=== PATIENT | male | born 1955 | race Caucasian/White ===

== ENCOUNTER → 2019-09-04 13:25 | Outpatient (CLI) | payer MEDICARE, SELFPAY ==
--- NOTE | 2019-09-04 13:31 | CT_ITS ---
STUDY: LOW DOSE CT LUNG CANCER SCREENING REASON FOR EXAM: Male, 64 years old. SMOKER/SOB. 50+ YR SMOKER 1/2 PPD screening study RADIATION DOSAGE (If Supplied By Facility): CTDIvol = ( 4.02 ) mGy, DLP = ( 150.99 ) mGycm TECHNIQUE: No contrast was administered. Low dose technique was utilized (average mAS-38 and kVp 120). 1.25 mm axial source images with a slice interval of 1.25-mm were reconstructed in lung windows. 2.5 mm axial source images with a slice interval of 2.5-mm were reconstructed in lung windows. 5.0 mm axial source images with a slice interval of 5.0-mm were reconstructed in soft tissue windows. Nodule measured using lung windows on PACS and/or independent workstation with automated measurement of minimum and maximum diameter. Nodule measurement reported as average diameter rounded to the nearest whole number. Growth is defined as an increase ins size of greater than 1.5 mm. COMPARISON: None. FINDINGS: Lung windows show the lungs to be normally expanded. No suspicious noncalcified mass or nodule is noted. No suspicious organized infiltrate or suspicious groundglass opacifications. No pleural or pericardial effusions. There is a calcified granuloma in the right upper lobe on axial image 144. Bony structures show degenerative change. Limited cuts through the upper abdomen do not show a suspicious abnormality CT/Low Dose CT Lung Screening IMPRESSION: Lung-RADS category 1 - Continue annual screening with LDCT in 12 months. IMPORTANT NOTES FOR USE: ACR Lung-RADS Version 1.0 Assessment Categories Release Date: July 10, 2013 Category: Coded 0-4 bases on nodule(s) with highest degree of suspicion. Negative screen is defined as categories 1 and 2; a positive screen is defined as categories 3 and 4. Category 3 and 4A nodules that are unchanged on interval CT should be coded as category 2, and individuals returned to screening in 12 months. Category 4X: Category 3 or 4 nodules with additional imaging findings that increase the suspicion of lung cancer, such as spiculation, GGN that doubles in size in 1 year, enlarged lymph notes, etc. Category Modifiers: S (significant finding unrelated to lung cancer) and C (prior history of treated lung cancer) may be added to the 0-4 Lung-RADS Electronically Signed: Kishan Culver MD at 14:03 EDT , Service support ,
== END ==
PROVIDERS: PCP Nurse Practitioner; Referring Provider Nurse Practitioner; Visit Provider Nurse Practitioner
DX: F17.210 Nicotine dependence, cigarettes, uncomplicated (principal); Z12.2 Encounter for screening for malignant neoplasm of respiratory organs
CPT/HCPCS: G0297

== ENCOUNTER 2019-09-10 08:18 | Observation (INO) | payer MEDICARE, SELFPAY ==
[2019-09-10] VITALS (17 sets, daily range): BP systolic 141–227; BP diastolic 71–101; PULSE 45–79; RESP 17–20; TEMP 36.2–37; O2SAT 96–100; BMI 29.6; BMI 27.8; BMI 27.9
--- NOTE | 2019-09-10 08:44 | EKG12_ITS ---
Test Reason : CP Blood Pressure : / mmHG Vent. Rate : 057 BPM Atrial Rate : 057 BPM P-R Int : 188 ms QRS Dur : 102 ms QT Int : 430 ms P-R-T Axes : 060 005 043 degrees QTc Int : 418 ms Sinus bradycardia Otherwise normal ECG Confirmed by FANI PEDRAZA ([id number]), desk editor CARISA BRUNO ([id number]) on 09/14/2019 11:59:18 AM Referred By: TOMAS Confirmed By:FANI PEDRAZA
[2019-09-10] MEDS: Aspirin 81 MG TAB.CHEW 324 MG PO (09:04)
[2019-09-10 09:10] LABS: Absolute Lymphocyte Count 2.28 X10^3/uL (0.83-4.51); Absolute Neutrophil Count 3.7 X10^3/uL (2.0-7.7); Basophil# 0.03 X10^3/uL; Basophil% 0.4 % (0-1); Eosinophil# 0.12 X10^3/uL; Eosinophils% 1.8 % (0-5); Hematocrit 46.3 % (40-54); Hemoglobin 14.6 g/dL (13.0-16.5); Lymphocyte # 2.28 X10^3/ul (4.0); Lymphocyte % 34.1 % (19-41); Mean Corp Hgb Conc 31.5 g/dL (32-36); Mean Corpuscular Hgb 30.8 pg (27.0-32.0); Mean Corpuscular Volume 97.7 fL (80-94); Mean Platelet Vol. 10.5 fl (6.2-12.0); Monocyte# 0.57 X10^3/uL; Monocyte% 8.5 % (0-10); NRBC Flagged by Analyzer 0 % (0-5); Neutrophil # 3.66 X10^3/uL (2.7-7.7); Neutrophil % 54.9 % (47-70); Platelet Count 277 K/mm3 (150-450); RBC Distribution Width CV 12.2 % (11.6-14.6); RBC Distribution Width SD 43.9 fl (35.1-43.9); Red Blood Count 4.74 M/mm3 (4.6-6.2); White Blood Count 6.7 K/mm3 (4.4-11.0)
--- NOTE | 2019-09-10 09:15 | RAD_ITS ---
STUDY: X-RAY CHEST REASON FOR EXAM: Male, 64 years old. CHEST TIGHTNESS TECHNIQUE: Frontal view COMPARISON: None. FINDINGS: The lungs are clear and expanded. There is no demonstrated pleural abnormality. Normal size heart. Normal mediastinum and imtiaz. Normal visualized pulmonary arteries. Normal visualized aortic arch and descending thoracic aorta. Normal visualized thoracic spine. Normal visualized ribs, clavicles, and shoulders. There is no demonstrated abnormality of the visualized soft tissue structures of the upper abdomen. RAD/Chest 1 View (Portable) IMPRESSION: Normal x-ray examination of the chest. Electronically Signed: Siddhartha Sylvester DO at 9:36 EDT Tel [phone], Service support ,
[2019-09-10 09:28] LABS: Anion Gap 7 (5-15); BUN 13 mg/dL (7-18); BUN/Creat Ratio 11.5 RATIO (10-20); Calcium,Total 8.9 mg/dL (8.5-10.1); Chloride 105 mmol/L (98-107); Creatinine, Serum 1.13 mg/dL (0.70-1.30); EST Glomerular Filtration Rate 69 mL/min (>60); Est Glom Filt Rate - Afr Amer 84 mL/min (>60); Estimated Creatinine Clearance 72.67 ml/min; Glucose 119 mg/dL (74-106); Potassium 3.6 mmol/L (3.5-5.1); Sodium Level 139 mmol/L (136-145)
[2019-09-10] MEDS: Atenolol 25 MG Tablet PO ×2 (09:38→13:35)
--- NOTE | 2019-09-10 09:47 | ED.DCSUM_ITS ---
- ER Visit Summary Date of Service: 09/10/19 Chief Complaint: Chest pain History of Present Illness: The patient is a 64 M who presents with chest pain that began approximate 1-1/2 hours prior to arrival. Patient states he woke up this morning and was doing some work on his computer and then sat down to watch TV. Patient states that his pain began soon after he sat down. Patient states the pain is all the way across his chest. Patient states nothing makes it better or worse. Patient does admit to some shortness of breath where he feels like he cannot get enough oxygen when he takes a deep breath. Patient admits to some intermittent lightheadedness. Patient denies any nausea or vomiting. Marleni ent denies any diaphoresis. Patient states he was having some palpitations earlier today. Patient has a history of hypertension but denies any other cardiac or PE risk factors. Patient states he quit smoking a year ago. Physical Examination: Vital signs are stable for an elevated blood pressure of 227/91 (patient did not take his normal blood pressure medicine this morning). Patient is afebrile. Patient is in no acute distress. Oral mucosa is pink and moist. Neck is supple. Trachea is midline. There is no JVD noted. Heart was regular rate and rhythm. Lungs are clear and equal bilaterally. Abdomen is soft. Bowel sounds are normal. There is no tenderness. There is no rebound or guarding noted. Skin is warm dry. Cranial nerves II through XII are intact. There are no focal motor or sensory deficits noted. Extremities are intact. There is no calf tenderness or edema. Test Results: EKG showed normal sinus rhythm with a rate of 57. There are no acute ST or T wave changes. CBC and basic metabolic profile were obtained and were essentially within normal limits. Troponin was less than 0.015. Portable chest x-ray was obtained. There is no acute cardiopulmonary process. This was interpreted by the radiologist and myself. D-dimer was normal. Emergency Department Course and Treatment: Patient was given his normal atenolol dose. Patient was given aspirin. Patient was given nitroglycerin. Patient was feeling better on reevaluation. Patient states he has not had a cardiac stress test in the last several years. Patient has a HEART score of 4. Patient has a AMERICA risk score of 2. I recommended admission to the hospital for further cardiac work-up. Patient is agreeable with this. Case was discussed with the hospitalist. He will admit the patient to PCU for observation. Patient understands and is agreeable with the plan. All questions were answered. Disposition: Admit to hospital Impression: 1. Chest pain This note was generated with [employer] dictation software. It may contain incorrect words, spelling, and punctuation that were not noted in review of the chart prior to signing ED Disposition - Plan for ED Patient: Disposition: Acute Care Hospital [facility] Diagnosis: Chest pain Referrals: Brandi Inman NP-C [Primary Care Provider] -
[2019-09-10 10:09] LABS: D-Dimer Quantitative (DVT/PE) 0.41 FEU/ug/m (0.27-0.49)
--- NOTE | 2019-09-10 11:11 | PCM.HP.STD ---
Problem List (1) Hypertension Status: Chronic (2) Chest pain Status: Acute History of Present Illness Date of Admission: 09/10/19 Chief Complaint: Chest pain. The patient is a 64 year old M with past medical history as mentioned above presented to the emergency room because of chest pain. His symptoms started this morning around 7 AM when he was laying down, started with chest pain, retrosternal, described as chest tightness or someone is sitting over his chest, mild to moderate, associated with shortness of breath and palpitation and without aggravating or relieving factors. He mentioned that he checked his blood pressure this morning and it was 212/114. He denied dizziness, lightheadedness, nausea, vomiting, syncope or presyncope. He stated that he was started on losartan for high blood pressure about 1 month ago but because he started having tunnel vision, losartan was discontinued and he was started on atenolol. Over the last month, his blood pressure has been not controlled. In the emergency department, his blood pressure was elevated, received 1 dose of p.o. atenolol. Other vital signs are stable. Routine blood work was unremarkable. EKG revealed sinus bradycardia, heart rate 57, normal FL interval, normal QRS, normal QTC, no acute segment changes. Troponin was negative. D-dimer was normal. Chest x-ray showed no acute findings. He is being admitted for atypical chest pain for evaluation as well as uncontrolled hypertension. Past Medical History Past Medical History (Chronic Problems): Chronic Problems Hypertension (Chronic) Allergies No Known Allergies Allergy (Verified 09/10/19 08:19) Home Medications: Ambulatory Orders Medication Instructions Recorded Atenolol [Tenormin (beta Varsha)] 25 mg PO DAILY 09/10/19 Surgical History: tonsillectomy Psychiatric History: No pertinent psych hx Lives: Spouse/ Significant Other Smoking Status: Former smoker Alcohol: Rare Drugs: None - *Family History Maternal History Items: No pertinent history Paternal History Items: Heart Disease Review of Systems Constitutional: Denies: Anorexia, Chills, Fever, Weakness Eyes: Denies: Blurred vision, Double vision, Drainage, Redness HEENT: Denies: Difficulty Hearing, Ear Pain, Eye Pain, Nasal Congestion, Sore Throat Cardiovascular: Reports: Chest Pain, Chest Tightness. Denies: Heaviness, Light Headedness, Orthopnea, Paroxysmal Noc. Dyspnea, Syncope Respiratory: Reports: Shortness of Breath. Denies: Cough, Pleuritic Pain, Sputum production, Wheezing Gastrointestinal: Denies: Abdominal Pain, Constipation, Diarrhea, Nausea, Vomiting Genitourinary: Denies: Dysuria, Frequency, Hematuria Musculoskeletal: Denies: Arm Pain, Back Pain, Foot Pain Skin: Denies: Dryness, Rash Neurological: Denies: Balance problems, Double vision, Change in Speech, Slurred speech, Confusion, Headaches, Incoordination Psychiatric: Denies: Anxiety Endocrine: Denies: Polydipsia, Polyuria VTE Information - Inpt Only VTE Present on Admission: No VTE Mechan Device Prophylaxis: None VTE Pharm Prophylaxis ordered?: Yes Patient Problems: Active and Suspected Problems Chest pain (Acute) - Physical Exam Vitals/I&O's: Vital Signs Temp Pulse Resp BP Pulse Ox 98.1 F 64 20 H 227/91 H 98 09/10/19 08:19 09/10/19 08:19 09/10/19 08:19 09/10/19 08:19 09/10/19 08:19 Oxygen Delivery Method Room Air Weight: 224 lb 10.417 oz Body Mass Index (BMI) 29.6 General: Alert, Oriented x3, Cooperative, No apparent distress HEENT: Atraumatic, PERRLA, EOMI, Normocephalic Oral: Moist Mucosa, No Gingival or Mucosal Lesions/ Ulcerations Neck: Supple, No JVD, Negative Carotid Bruits, Trachea Midline, Thyroid Normal Size and Texture Lungs: Clear to auscultation, Normal air movement, No rhonchi, No wheeze, No rales Cardiovascular: Regular rate, Regular Rhythm, Normal S1, Normal S2, PMI Normal Abdomen: Bowel Sounds Present, Soft, Non Tender, Non-Distended, No Hepato-splenomegaly Extremities: No clubbing, No cyanosis, No edema Skin: No rashes, No breakdown Lymphatic: No Cervical, Supraclavicular, or Inguinal Adenopathy Neurological: Cranial nerves II-XII grossly intact, Motor Exam 5/5 strength throughout Psych/Mental Status: Normal Affect, Appropriate, Alert and oriented to time, place, person, mood and affect Laboratory Results 09/10/19 08:25: WBC 6.7, RBC 4.74, Hgb 14.6, Hct 46.3, MCV 97.7 H, MCH 30.8, MCHC 31.5 L, RDW Std Deviation 43.9, RDW Coeff of Shaan 12.2, Plt Count 277, MPV 10.5, Immature Gran % (Auto) 0.300, Neut % (Auto) 54.9, Lymph % (Auto) 34.1, Mcduffie % (Auto) 8.5, Eos % (Auto) 1.8, Baso % (Auto) 0.4, Absolute Neuts (auto) 3.7, Absolute Lymphs (auto) 2.28, Nucleated RBC % 0 09/10/19 08:25: Sodium 139, Potassium 3.6, Chloride 105, Carbon Dioxide 27.0, Anion Gap 7, BUN 13, Creatinine 1.13, Estim Creat Clear Calc 72.67, Est GFR (MDRD) Af Amer 84, Est GFR (MDRD) Non-Af 69, BUN/Creatinine Ratio 11.5, Glucose 119 H, Calcium 8.9, Troponin I < 0.015 09/10/19 08:27: D-Dimer Quant (PE/DVT) 0.41 Clinical Impression(s) from Imaging Studies Chest X-Ray 09/10/19 09:15 IMPRESSION: Normal x-ray examination of the chest. Electronically Signed: Siddhartha Sylvester DO at 9:36 EDT Tel [phone], Service support , Current Medications Nitroglycerin (Nitrostat) 0.4 mg SUBLINGUAL Q5M PRN PRN Reason: Chest pain Assessment/Plan All Active Problems Chest pain (Acute) This is a 64 years old male patient presented to the emergency room because of chest pain/tightness, found to have elevated blood pressure and he is being admitted for evaluation and treatment. #1 atypical chest pain/pressure: Risk factors are age, hypertension and history of smoking. Denies family history of premature CAD although his dad had heart disease when he was 60 years old. Initial EKG revealed sinus bradycardia, no acute segment changes. Troponin and d-dimer was normal. Chest x-ray showed no acute findings. Blood pressure was highly elevated. Order given to ED nurse to give IV hydralazine 10 mg x 1. Plan: Admit to PCU observation, cardiac monitoring, serial cardiac enzymes, repeat EKG tomorrow morning, start baby aspirin, nuclear stress test tomorrow morning if cardiac enzymes are negative, repeat CBC and BMP tomorrow morning. #2 uncontrolled hypertension/hypertensive urgency: Without evidence of endorgan damage. Blood pressure was 227/91 in the ED. Patient stated that it was 212/114 at home. He was started on losartan a month ago, discontinued 2 weeks later because of tunnel vision. I do not think losartan can cause tunnel vision but his vision change likely due to highly elevated blood pressure. Plan: Continue atenolol, start losartan 50 mg daily, IV hydralazine PRN. #3 DVT prophylaxis: Subcu Lovenox. This note was generated with [employer] dictation software. It may contain incorrect words, spelling, and punctuation that were not noted in checking the note before signing. OBSV E&M: [id number] Initial observation care L3
[2019-09-10] MEDS: hydrALAZINE 20 MG/ML Vial 10 MG IV ×2 (11:29→13:28)
--- NOTE | 2019-09-10 13:22 | EKG12_ITS ---
Test Reason : CP Blood Pressure : / mmHG Vent. Rate : 068 BPM Atrial Rate : 068 BPM P-R Int : 188 ms QRS Dur : 106 ms QT Int : 394 ms P-R-T Axes : 052 008 042 degrees QTc Int : 418 ms Normal sinus rhythm Normal ECG When compared with ECG of 10-SEP-2019 08:28, MANUAL COMPARISON REQUIRED, DATA IS UNCONFIRMED Confirmed by FANI PEDRAZA ([id number]), assistant editor CARISA BRUNO ([id number]) on 09/14/2019 12:10:51 PM Referred By: HOSP Confirmed By:FANI PEDRAZA
[2019-09-10] MEDS: 0.9% Saline Lock 10 ML Syringe IV ×2 (13:28→20:11)
[2019-09-10] MEDS: Aspirin E.C. 81 MG Tablet PO (13:34)
[2019-09-10] MEDS: Enoxaparin 40 MG/0.4 ML Syringe SC (13:35)
[2019-09-10] MEDS: Losartan Potassium 50 MG Tablet PO (13:36)
[2019-09-11 01:00] VITALS: BP 156/90; PULSE 50; PULSE 51; RESP 16; TEMP 36.6; O2SAT 96
[2019-09-11 03:58] VITALS: PULSE 52
--- NOTE | 2019-09-11 05:55 | EKG12_ITS ---
Test Reason : AM Blood Pressure : / mmHG Vent. Rate : 056 BPM Atrial Rate : 056 BPM P-R Int : 194 ms QRS Dur : 102 ms QT Int : 428 ms P-R-T Axes : 060 012 046 degrees QTc Int : 413 ms Sinus bradycardia Otherwise normal ECG When compared with ECG of 10-SEP-2019 13:33, MANUAL COMPARISON REQUIRED, DATA IS UNCONFIRMED Confirmed by FANI PEDRAZA ([id number]), school photograph editor CARISA BRUNO ([id number]) on 09/14/2019 12:21:40 PM Referred By: MARIELA Confirmed By:FANI PEDRAZA
[2019-09-11 06:12] VITALS: BP 173/91; PULSE 62; RESP 16; TEMP 36.2; O2SAT 98
[2019-09-11] MEDS: Losartan Potassium 50 MG Tablet PO (06:19)
[2019-09-11] MEDS: Aspirin E.C. 81 MG Tablet PO (06:19)
[2019-09-11 07:00] VITALS: PULSE 54
[2019-09-11 07:25] VITALS: O2SAT 97
[2019-09-11 10:45] VITALS: BP 164/92; PULSE 67; RESP 16; TEMP 37.4; O2SAT 97
--- NOTE | 2019-09-11 11:09 | STRESSREP ---
Stress Test Report Pharmacologic myocardial perfusion stress test. 64-year-old man with a history of chest pain and accelerated hypertension. Stress protocol: Resting EKG demonstrates normal sinus rhythm with rate of 58 bpm normal intervals are noted resting blood pressure is 198/96 mmHg. 0.4 mg of regadenoson was infused per usual protocol with Intravenous saline flush injection continuous EKG monitoring was performed. The patient maintained sinus rhythm throughout the recording. The maximum heart rate attained was 94 bpm which was 61% of maximal predicted heart rate the maximum workload was 1 metabolic equivalent. At rest there were no ST or T wave changes noted to suggest ischemia at peak infusion nonspecific ST-T wave changes were noted. The final blood pressure was 160/94 with a maximum blood pressure of 198/106. Myocardial perfusion protocol. 11.6 mCi of technetium 99m sestamibi was noted and injected. 0.4 mg of regadenoson was infused per usual protocol. At peak infusion 33.7 mCi of technetium 99m sestamibi was injected stress images were obtained stress and rest images were reconstructed and compared in the short axis vertical long and horizontal long axis. Gated images were also obtained. Perfusion SPECT analysis: Review of the stress images demonstrate normal uptake of tracer noted in all areas of the myocardium the resting images similar demonstrate normal uptake of tracer noted in all areas of the myocardium. No areas of reversibility are noted to suggest ischemia no previous infarct is noted. Gated SPECT analysis: The gated ejection fraction is 79%. Conclusion: Normal pharmacologic myocardial perfusion stress test. Resting hypertension present.
--- NOTE | 2019-09-11 11:22 | PCM.DC ---
- Discharge Diagnoses Current Active Problems: Current Active and Chronic Problems Hypertension (Chronic) Chest pain (Acute) You will use the following diet at home:: Cardiac Your food should be the consistency of: Regular Your liquids should be the consistency of: Regular/Thin Discharge Activity: Return to Normal Activity Allergies/Adverse Reactions: Allergies No Known Allergies Allergy (Verified 09/10/19 08:19) Medications to take at Discharge Atenolol [Tenormin (beta cheyenne)] 25 mg PO DAILY 09/10/19 Losartan/Hydrochlorothiazide [Losartan-Hctz 100-25 mg Tab] 1 ea PO DAILY #30 tab 09/11/19 The following prescriptions were given: Losartan/Hydrochlorothiazide [Losartan-Hctz 100-25 mg Tab] 1 ea PO DAILY #30 tab Transmission Status: Pending to [facility] Primary Care Physician: Brandi Inamn NP-C [Primary Care Provider] - Please follow up with your Primary Care Physician in: 1-2 weeks Test Results: Test results from this visit will be discussed in further detail at your follow-up appointment, if applicable. Proposed Discharge Date: 09/11/19
--- NOTE | 2019-09-11 11:56 | CASEMGMT ---
This RN CM to room with MUNGUIA form at this time, explanation done-pt voices understanding, and signed MUNGUIA form at this time. Original to chart and copy to pt at this time. Pt voices no further questions/concerns/needs at this time. Pt awaiting discharge. SStaten ALISSA TROY
--- NOTE | 2019-09-11 14:17 | DS.PCM_ITS ---
<Anand Germain - Last Filed: 09/11/19 14:17> Discharge Date and Diagnosis Date of Admission: 09/10/19 Date of Discharge: 09/11/19 - Primary Discharge Diagnosis Acute Problems: Chest pain 2/2 uncontrolled HTN - Secondary Discharge Diagnosis Chronic Problems: Chronic Problems Hypertension (Chronic) Hospital Course and Treatment Imaging Results: 09/11/19 05:55 Nuclear Stress Test - Chemical [NM] AM (NON MEDS) Gated SPECT analysis: The gated ejection fraction is 79%. Conclusion: Normal pharmacologic myocardial perfusion stress test. Resting hypertension present. RAD/Chest 1 View (Portable) IMPRESSION: Normal x-ray examination of the chest. Operations: None Procedures: Stress test Summary of Care Provided: Hospital Course: The patient is a 64 year old M with past medical history of hypertension who presented to the emergency room with chest pain. The patient was lying down to began having retrosternal chest tightness and described to somebody sitting over his chest, with some associated shortness of breath and palpitations. He came to the emergency room was found to have a blood pressure of 212/114. He recently had his losartan discontinued. Patient was admitted to the PCU for chest pain work-up. He had negative troponin x3, negative chest x-ray, negative EKG. He had no events on telemetry overnight. The following day he underwent a stress test which was negative for ischemia. He was placed on losartan and HCTZ in addition to his atenolol for his blood pressure. Blood pressure was better controlled he had no further chest pain. He was discharged home in stable condition and will need to follow-up with his PCP in 1 to 2 weeks. This patient was seen by Anand Germain PA-C under the supervision of Doctor Rudolph. [] - Physical Exam Vitals/I&O's: Vital Signs Temp Pulse Resp BP Pulse Ox 99.3 F H 67 16 164/92 H 97 09/11/19 10:45 09/11/19 10:45 09/11/19 10:45 09/11/19 10:45 09/11/19 10:45 Oxygen Delivery Method Room Air Weight: 217 lb 6 oz Body Mass Index (BMI) 27.8 Intake and Output for Last 24 Hours 09/09/19 09/10/19 09/11/19 23:59 23:59 23:59 Intake Total 1600 / 1600 0 / 0 Output Total 350 / 350 Balance 1250 / 1250 0 / 0 General: Alert, Oriented x3, Cooperative HEENT: Atraumatic, PERRLA, EOMI, Normocephalic Neck: Supple, No JVD, Negative Carotid Bruits Lungs: Clear to auscultation, Normal air movement Cardiovascular: Regular rate, No murmurs Abdomen: Bowel Sounds Present, Soft, Non Tender Extremities: No edema, Capillary Refill Less than 3 Seconds Skin: No rashes, No breakdown Musculoskeletal: No Tenderness to Palpation of Joints or Extremities Neurological: Cranial nerves II-XII grossly intact Psych/Mental Status: Normal Affect, Appropriate, Alert and oriented to time, place, person, mood and affect Laboratory Results 09/10/19 14:52: Troponin I < 0.015 Discharge Diet: Low fat/ Low Cholesterol, 2000 mg Sodium Diet Discharge Activity: Return to Normal Activity Home Medications: Medications to take at Discharge Atenolol [Tenormin (beta cheyenne)] 25 mg PO DAILY 09/10/19 Losartan/Hydrochlorothiazide [Losartan-Hctz 100-25 mg Tab] 1 ea PO DAILY #30 tab 09/11/19 Following Prescrptions Were Given to Patient: Losartan/Hydrochlorothiazide [Losartan-Hctz 100-25 mg Tab] 1 ea PO DAILY #30 tab Transmission Status: Received by [facility] Primary Care Physician: Brandi Inman NP-C [Primary Care Provider] - Please follow up with your Primary Care Physician in: 1-2 weeks Medical Necessity - Tobacco Use Smoking Status: Former smoker Meaningful Use Info Meaningful Use Diagnoses (Choose all that apply): None applicable <Inder Rudolph - Last Filed: 09/11/19 14:58> Discharge Date and Diagnosis - Secondary Discharge Diagnosis Chronic Problems: Chronic Problems Hypertension (Chronic) Hospital Course and Treatment Summary of Care Provided: This patient was seen in conjunction with Anand Germain PA-C . I have independently interviewed and examined the patient and reviewed pertinent historical, laboratory, and other data. Please refer to Anand Germain PA-C note for details of this patient's presentation, findings, and recommendations. I have reviewed Anand Germain PA-C note and concur with documented findings. In brief, patient is 64-year-old gentleman admitted with chest pain and markedly elevated blood pressure. Admitted to monitored bed for subsequent management and medication adjustment. Hospital course: As documented above - Physical Exam Vitals/I&O's: Vital Signs Temp Pulse Resp BP Pulse Ox 99.3 F H 67 16 164/92 H 97 09/11/19 10:45 09/11/19 10:45 09/11/19 10:45 09/11/19 10:45 09/11/19 10:45 Oxygen Delivery Method Room Air Weight: 98.6 kg Body Mass Index (BMI) 27.8 Intake and Output for Last 24 Hours 09/09/19 09/10/19 09/11/19 23:59 23:59 23:59 Intake Total 1600 / 1600 0 / 0 Output Total 350 / 350 Balance 1250 / 1250 0 / 0 Laboratory Results 09/10/19 14:52: Troponin I < 0.015 OBSV E&M: [id number] Observation care discharge
== END 2019-09-11 11:22 | disposition home or self-care (01) ==
LOC: ED 10:54 → PCU 11:35
PROVIDERS: Admitting Provider Hospitalist; Emergency Provider Emergency Medicine; PCP Nurse Practitioner; Visit Provider Internal Medicine
DX: R07.89 Other chest pain (principal); R06.02 Shortness of breath; I10 Essential (primary) hypertension; R42 Dizziness and giddiness; R00.2 Palpitations; I16.0 Hypertensive urgency; Z87.891 Personal history of nicotine dependence; Z79.899 Other long term (current) drug therapy
CPT/HCPCS: 36415; 71045; 78452; 80048; 84484; 85025; 85379; 93005; 93017; 96372; 96374; 96376; 99218; 99285; A9500; A4216; G0378; J2785

== ENCOUNTER → 2019-09-13 | Outpatient (CLI) | payer MEDICARE, SELFPAY ==
[2019-09-10 11:56] VITALS: BMI 27.8
--- NOTE | 2019-09-13 13:23 | CT_ITS ---
STUDY: CT BRAIN WITH AND WITHOUT CONTRAST REASON FOR EXAM: Male, 64 years old. TUNNEL VISION bilaterally./ELEV BP/NEW MEDS .Pt feels and quot;wierd and quot; RADIATION DOSAGE (If Supplied By Facility): CTDIvol = ( 44.99 ) mGy, DLP = ( 1625.96 ) mGycm TECHNIQUE: Transaxial CT imaging of the brain was performed pre and post contrast administration. The examination was performed with intravenous administration of IV 100mL Isovue-300. Individualized dose optimization techniques were used for this CT. COMPARISON: None. FINDINGS: Normal soft tissue structures. Normal calvarium. Normal size ventricles and extra-axial spaces for the patient''s age. Normal white matter tracts of the cerebral hemispheres. Normal basal ganglia and thalami. Normal brainstem. Normal cerebellum. There is no intracranial hemorrhage. There are no findings of an acute ischemic infarction. Normal visualized paranasal sinuses. No suspicious enhancing lesion CT/Brain/Head W/WO Contrast IMPRESSION: Chronic involutional changes of the brain. No acute intrarenal hemorrhage or suspicious enhancing lesion Electronically Signed: Kishan Culver MD at 14:10 EDT , Service support ,
== END | disposition home or self-care (01) ==
LOC: CT 13:14
PROVIDERS: PCP Nurse Practitioner; Referring Provider Nurse Practitioner; Visit Provider Nurse Practitioner
DX: H53.483 Generalized contraction of visual field, bilateral (principal)
CPT/HCPCS: 70470; Q9967

== ENCOUNTER → 2019-09-26 | Outpatient (CLI) | payer MEDICARE, SELFPAY ==
[2019-09-10 11:56] VITALS: BMI 27.8
--- NOTE | 2019-09-26 14:08 | PFT ---
INTRODUCTION: The patient is a 64-year-old male that presents for pulmonary function studies secondary to a diagnosis of shortness of breath. Respiratory therapy reports good patient effort. Bronchodilators were used during testing. INTERPRETATION: Forced expiration spirometry demonstrates the presence of a mild large airways obstructive ventilatory defect. There was no significant response to aerosolized bronchodilators. Spirograms are of good quality and do not plateau indicating slow emptying of the lungs. Body plethysmography was performed and reveals lung volumes to be within normal limits. Diffusing capacity by single breath CO is also within normal limits. IMPRESSION: Irreversible mild large airways obstructive ventilatory defect with preserved lung volumes and diffusing capacity.
== END | disposition home or self-care (01) ==
LOC: PSN 06:52
PROVIDERS: PCP Nurse Practitioner; Referring Provider Nurse Practitioner; Visit Provider Nurse Practitioner
DX: R06.02 Shortness of breath (principal)
CPT/HCPCS: 94010; 94060; 94726; 94729

== ENCOUNTER → 2019-11-14 | Outpatient (CLI) | payer MEDICARE, SELFPAY ==
[2019-09-10 11:56] VITALS: BMI 27.8
[2019-11-14 12:40] LABS: EGFR FINGERSTICK > 60.0000 mL/min (>60)
== END | disposition home or self-care (01) ==
LOC: MRI 12:14
PROVIDERS: PCP Nurse Practitioner; Referring Provider Nurse Practitioner; Visit Provider Nurse Practitioner
DX: H53.9 Unspecified visual disturbance (principal)

== ENCOUNTER → 2020-05-27 13:39 | Outpatient (CLI) | payer MEDICARE, SELFPAY ==
[2019-09-10 11:56] VITALS: BMI 27.8
[2020-05-27 15:09] LABS: BUN 18 mg/dL (7-18); Creatinine, Serum 1.12 mg/dL (0.70-1.30); EST Glomerular Filtration Rate 70 mL/min (>60); Est Glom Filt Rate - Afr Amer 84 mL/min (>60)
== END ==
PROVIDERS: PCP Nurse Practitioner
DX: Z01.812 Encounter for preprocedural laboratory examination (principal)
CPT/HCPCS: 36415; 82565; 84520

== ENCOUNTER → 2020-09-04 12:59 | Outpatient (CLI) | payer MEDICARE, SELFPAY ==
[2019-09-10 11:56] VITALS: BMI 27.8
--- NOTE | 2020-09-04 13:08 | CT_ITS ---
STUDY: CT CHEST WITHOUT CONTRAST- LOW DOSE SCREENING PROTOCOL REASON FOR EXAM: Male, 65 years old. Former smoker. Quit smoking less than 30 years ago 10 pack per year history. No current symptoms of lung cancer or pulmonary infection. Shared decision-making with referring PCP documented in patient''s record. RADIATION DOSAGE (If Supplied By Facility): CTDIvol = ( 4.02 ) mGy, DLP = ( 147.48 ) mGycm TECHNIQUE: Low dose screening CT examination performed from the base of the neck to the upper abdomen. Sagittal and coronal reformatted images performed. Sagittal and coronal MIP images provided. The measurements provided are average, rounded measurements per ACR guidelines. COMPARISON: None. FINDINGS: The lungs are normal. There is no demonstrated pleural abnormality. Normal heart and pericardium. There are calcifications of the coronary arteries. Normal mediastinum. Normal hilar regions. Normal unenhanced pulmonary arteries. Normal aorta arch and descending thoracic aorta. Normal osseous structures. There is no demonstrated abnormality of the visualized upper abdomen. CT/Low Dose CT Lung Screening IMPRESSION: 1. No significant indeterminate incidental findings requiring additional imaging. 2. Incidental findings include calcified coronary plaque. ASSESSMENT CATEGORY: LungRADS 1 - Negative. Continue annual screening with LDCT in 12 months, per established ACR guidelines. Electronically Signed: Robert Sandoval MD at 14:36 EDT Tel , Service support ,
== END ==
PROVIDERS: PCP Nurse Practitioner; Referring Provider Nurse Practitioner; Visit Provider Nurse Practitioner
DX: F17.210 Nicotine dependence, cigarettes, uncomplicated (principal); F17.290 Nicotine dependence, other tobacco product, uncomplicated; Z12.2 Encounter for screening for malignant neoplasm of respiratory organs
CPT/HCPCS: 71271

== ENCOUNTER → 2022-02-23 | Outpatient (CLI) | payer MEDICARE, SELFPAY ==
--- NOTE | 2022-02-23 12:47 | CT_ITS ---
STUDY: LOW DOSE CT LUNG CANCER SCREENING REASON FOR EXAM: Male, 66 years old. SCREENING. 65-year-old male. Former smoker.] 10 year pack history. 30 years ago. RADIATION DOSAGE (If Supplied By Facility): CTDIvol = ( 3.02 ) mGy, DLP = ( 113.25 ) mGycm TECHNIQUE: No contrast was administered. Low dose technique was utilized (average mAS-38 and kVp 120). 1.25 mm axial source images with a slice interval of 1.25-mm were reconstructed in lung windows. Coronal and sagittal reconstructions obtained. COMPARISON: September 04, 2020 and September 04, 2019. NODULES: Posterior right middle lobe 4 mm calcified granuloma and 4.5 mm anterior right lung base calcified granuloma. No new or enlarging pulmonary nodules. Total lung nodules (excluding granulomas): 0 Parenchyma: No airspace consolidation, effusion, or pneumothorax. Endobronchial lesion: Mild bilateral peribronchial thickening without endobronchial mass, mucus, or debris. Aorta: Scattered atherosclerosis with ascending aorta upper limits of normal in size at 3.9 cm, unchanged from September 04, 2019 without intramural hematoma. CORONARY ARTERIES: Mild coronary artery calcifications Heart: No cardiomegaly or pericardial effusion. Pulmonary artery: Limited evaluation on noncontrast exam without enlargement relative to aorta. Mediastinal nodes: Calcified subcarinal and right hilar lymph nodes are present. Subcentimeter short axis scattered mediastinal lymph nodes are also present, nonpathologic by size criteria and without significant change and September 04, 2019. Other chest and abdominal findings: Imaged colon is stool filled. Fluid density left hepatic dome 1.8 cm cyst, unchanged from September 04, 2019 CT/Low Dose CT Lung Screening IMPRESSION: No new or enlarging pulmonary nodules or suspicious finding for malignancy. No significant change from September 04, 2019. Sequela of prior granulomatous disease. Lung-RADS 1 - Negative. Continue annual screening LDCT in 12 months, per established ACR guidelines. IMPORTANT NOTES FOR USE: ACR Lung-RADS Version 1.1 Assessment Categories Release Date: 2018 Category: Coded 0-4 bases on nodule(s) with highest degree of suspicion. Negative screen is defined as categories 1 and 2; a positive screen is defined as categories 3 and 4. Category 3 and 4A nodules that are unchanged on interval CT should be coded as category 2, and individuals returned to screening in 12 months. Category 4X: Category 3 or 4 nodules with additional imaging findings that increase the suspicion of lung cancer, such as spiculation, GGN that doubles in size in 1 year, enlarged lymph notes, etc. Category Modifiers: S (significant finding unrelated to lung cancer) Electronically Signed: Kody Beckett MD at 8:08 EST ,
== END | disposition home or self-care (01) ==
LOC: CT 12:46
PROVIDERS: PCP Nurse Practitioner Family; Referring Provider Nurse Practitioner Family; Visit Provider Nurse Practitioner Family
DX: Z87.891 Personal history of nicotine dependence (principal)
CPT/HCPCS: 71271

== ENCOUNTER → 2023-02-24 | Outpatient (CLI) | payer MEDICARE, SELFPAY ==
--- NOTE | 2023-02-24 12:43 | CT_ITS ---
STUDY: LOW DOSE CT LUNG CANCER SCREENING REASON FOR EXAM: Male, 67 years old. calcified granuloma of lung RADIATION DOSAGE (If Supplied By Facility): CTDIvol = ( 3.02 ) mGy, DLP = ( 115.51 ) mGycm TECHNIQUE: No contrast was administered. Low dose technique was utilized (average mAS-38 and kVp 120). 1.25 mm axial source images with a slice interval of 1.25-mm were reconstructed in lung windows. 2.5 mm axial source images with a slice interval of 2.5-mm were reconstructed in lung windows. 5.0 mm axial source images with a slice interval of 5.0-mm were reconstructed in soft tissue windows. COMPARISON: 02/23/2022 Emphysema: Mild emphysema. No noncalcified nodule or mass. Endobronchial lesion: None Aorta: No aortic aneurysm. CORONARY ARTERIES: Coronary artery calcification is seen. Heart: No cardiomegaly. Pulmonary artery: Normal Mediastinal nodes: Normal Other chest and abdominal findings: None CT/Low Dose CT Lung Screening IMPRESSION: Lung-RADS category 1 - Continue annual screening with LDCT in 12 months. IMPORTANT NOTES FOR USE: ACR Lung-RADS Version 1.1 Assessment Categories Release Date: 2018 Category: Coded 0-4 bases on nodule(s) with highest degree of suspicion. Negative screen is defined as categories 1 and 2; a positive screen is defined as categories 3 and 4. Category 3 and 4A nodules that are unchanged on interval CT should be coded as category 2, and individuals returned to screening in 12 months. Category 4X: Category 3 or 4 nodules with additional imaging findings that increase the suspicion of lung cancer, such as spiculation, GGN that doubles in size in 1 year, enlarged lymph notes, etc. Category Modifiers: S (significant finding unrelated to lung cancer) Electronically Signed: Robert Sandoval MD at 21:55 EST ,
[2023-02-24 13:38] LABS: Absolute Neutrophil Count 4.3 X10^3/uL (2.0-7.7); Basophil# 0.03 X10^3/uL; Basophil% 0.5 % (0-1); Eosinophil# 0.03 X10^3/uL; Eosinophils% 0.5 % (0-5); Hematocrit 43.1 % (40-54); Hemoglobin 13.9 g/dL (13.0-16.5); Lymphocyte % 25.6 % (19-41); Mean Corp Hgb Conc 32.3 g/dL (32-36); Mean Corpuscular Hgb 31.8 pg (27.0-32.0); Mean Corpuscular Volume 98.6 fL (80-94); Mean Platelet Vol. 10.2 fl (6.2-12.0); Monocyte% 4.8 % (0-10); NRBC Flagged by Analyzer 0 % (0-5); Neutrophil # 4.27 X10^3/uL (2.7-7.7); Neutrophil % 68.3 % (47-70); Platelet Count 251 K/mm3 (150-450); RBC Distribution Width CV 12.3 % (11.6-14.6); RBC Distribution Width SD 44.6 fl (35.1-43.9); Red Blood Count 4.37 M/mm3 (4.6-6.2); White Blood Count 6.3 K/mm3 (4.4-11.0)
[2023-02-24 14:13] LABS: PSA,Total - Annual Screen 1.49 ng/mL (0.00-4.00)
== END | disposition home or self-care (01) ==
LOC: CT 12:33
PROVIDERS: PCP Nurse Practitioner Family; Referring Provider Nurse Practitioner Family; Visit Provider Nurse Practitioner Family
DX: Z12.5 Encounter for screening for malignant neoplasm of prostate (principal); J84.10 Pulmonary fibrosis, unspecified; I10 Essential (primary) hypertension; F17.210 Nicotine dependence, cigarettes, uncomplicated
CPT/HCPCS: 36415; 71271; 84153; 85025; G0103